=== PATIENT | female | born 2000 | race Two or more races ===

== ENCOUNTER 2020-01-15 08:40 | Emergency (ER) | payer SELFPAY ==
[~2020-01-15] VITALS: Ht 165.1 cm; Wt 78.7 kg
[2020-01-15] MEDS ORDERED: LORazepam 1MG TABLET PO ONE (09:00)
[2020-01-15] MEDS ORDERED: LORazepam 1MG TABLET ONE (09:03)
--- NOTE | 2020-01-15 09:11 | NUR ---
PT PRESENTS TO ED WITH C/O LEFT SIDED CHEST PAIN, NON-RADIATING WITH NO EXACERBATING FACTORS. DENIES ASSOCIATED SYMPTOMS AT THIS TIME, ONSET THIS AM. PT STATES AT ONSET OF PAIN, SHE FELT FAINT BUT DID NOT SYNCOPIZE. PT RATES AT 3/10, DULL. EKG TAKEN IN TRIAGE. PT ATTACHED TO ALL MONITORS. SINUS TACH RATE 90'S ON WAREHOUSE AND RECEIVING SUPERVISOR, NO ECTOPY. CALL LIGHT IN REACH. MOTHER AT BEDSIDE. AWAITING LAB AND CXR AT THIS TIME.
[2020-01-15 09:30] LABS: BASOPHILS # (AUTO) 0.04 x10^3/uL (0-0.1); BASOPHILS % (AUTO) 0 % (0-1); EOSINOPHILS # (AUTO) 0.03 x10^3/uL (0-0.4); EOSINOPHILS % (AUTO) 0 % (1-7); LYMPHOCYTES # (AUTO) 1.15 x10^3/uL (1-3.4); LYMPHOCYTES % (AUTO) 13 % (22-44); MD NO; MEAN CORPUSCULAR HGB CONC 32.5 g/dL (32.4-35.8); MEAN CORPUSCULAR VOLUME 86.2 fL (80-100); MEAN PLATELET VOLUME 7.8 fL (7.4-10.4); MONOCYTES # (AUTO) 0.75 x10^3/uL (0.2-0.8); MONOCYTES % (AUTO) 9 % (2-9); NEUTROPHILS # (AUTO) 6.71 x10^3/uL (1.8-6.8); NEUTROPHILS % (AUTO) 77 % (42-75); PLATELET COUNT 273 x10^3/uL (130-400); RED BLOOD COUNT 5.37 x10^6/uL (3.82-5.3); RED CELL DISTRIBUTION WIDTH 15.1 % (9.6-15.2)
[2020-01-15 09:55] LABS: ALBUMIN 4.4 g/dL (3.4-5.0); CALCIUM 9.1 mg/dL (8.5-10.1); CREATININE 0.81 mg/dL (0.55-1.02)
[2020-01-15 10:02] LABS: ANION GAP 9 mmol/L (5-15); CHLORIDE 110 mmol/L (98-107)
[2020-01-15 11:17] VITALS: BP 96/52
--- NOTE | 2020-01-15 11:19 | NUR ---
TASK RN: PT RESTING ON GIOVANI IN NAD. VSS. CALL LIGHT PLACED WITHIN REACH.
== END 2020-01-15 13:13 | disposition home or self-care (01) ==
LOC: ED 09:41
DX: F41.1 Generalized anxiety disorder (principal); R06.00 Dyspnea, unspecified; R07.89 Other chest pain; R00.0 Tachycardia, unspecified
CPT/HCPCS: 36415; 71046; 80048; 82040; 84703; 85025; 85379; 93005; 99285

== ENCOUNTER 2020-03-16 08:42 | Emergency (ER) | payer MEDICAID ==
[~2020-03-16] VITALS: Ht 165.1 cm; Wt 75.0 kg
[2020-03-16] MEDS ORDERED: SERT50TA PO (09:01)
--- NOTE | 2020-03-16 09:01 | NUR ---
THIS IS A 19 YO F BIB EMS FROM HOME W/ C/O SA. PT REPORTS TAKING 5 OF HER 50MG ZOLOFT AT APPROX 0800. PT PLACED ON L2K BY [employer]. 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 PER EMS PT RECEIVED 1500ML NS STEEL POURER. PT DENIES PREVIOUS SA BUT HX OF DEPRESSION/SI. PT STATES THAT SHE WOKE UP THIS MORNING AND "WAS JUST TIRED OF LIVING WITH IT". PT EASILY AROUSED AND ANSWERING QUESTIONS APPROPRIATELY. PT AMBULATED TO BEDSIDE COMMODE W/ A STEADY GAIT. UNANABLE TO PROVIDE URINE SAMPLE AT THIS TIME. BELONGINGS COLLECTED AND PLACED IN SAFETY LOCKER. PT RESTING ON [employer] W/ SIDE RAILS UPX2. CONNECTED TO ALL MONITORING. RESP EVEN AND UNLABORED, LUCIO.
--- NOTE | 2020-03-16 09:10 | NUR ---
PT AMBULATED TO THE BEDSIDE COMMODE W/ A STEADY GAIT. PROVIDED URINE SAMPLE, COLLECTED AND SENT TO LAB.
[2020-03-16 09:11] LABS: BASOPHILS # (AUTO) 0.02 x10^3/uL (0-0.1); BASOPHILS % (AUTO) 0 % (0-1); EOSINOPHILS # (AUTO) 0.02 x10^3/uL (0-0.4); EOSINOPHILS % (AUTO) 0 % (1-7); LYMPHOCYTES # (AUTO) 1.01 x10^3/uL (1-3.4); LYMPHOCYTES % (AUTO) 15 % (22-44); MD NO; MEAN CORPUSCULAR HEMOGLOBIN 27.6 pg (27.0-34.8); MEAN CORPUSCULAR HGB CONC 32.1 g/dL (32.4-35.8); MEAN PLATELET VOLUME 7.2 fL (7.4-10.4); MONOCYTES # (AUTO) 0.48 x10^3/uL (0.2-0.8); MONOCYTES % (AUTO) 7 % (2-9); NEUTROPHILS # (AUTO) 5.21 x10^3/uL (1.8-6.8); NEUTROPHILS % (AUTO) 77 % (42-75); PLATELET COUNT 302 x10^3/uL (130-400); RED BLOOD COUNT 5.29 x10^6/uL (3.82-5.3); RED CELL DISTRIBUTION WIDTH 14.3 % (9.6-15.2)
--- NOTE | 2020-03-16 09:15 | NUR ---
PT STATES THAT SHE DOES NOT WANT VISITORS RIGHT NOW BUT WE CAN UPDATE HER MOM IN THE LOBBY. MOM UPDATED ON POC.
[2020-03-16 09:20] LABS: ALBUMIN 4.1 g/dL (3.4-5.0); ANION GAP 7 mmol/L (5-15); CALCIUM 9.1 mg/dL (8.5-10.1); CHLORIDE 113 mmol/L (98-107)
[2020-03-16 09:26] LABS: ALANINE AMINOTRANSFERASE 25 U/L (12-78); ALKALINE PHOSPHATASE 48 U/L (45-117); BILIRUBIN,TOTAL 0.7 mg/dL (0.2-1.0); CREATININE 0.79 mg/dL (0.55-1.02); TOTAL PROTEIN 7.8 g/dL (6.4-8.2)
--- NOTE | 2020-03-16 09:26 | NUR ---
PT PLACED ON CO2 MONITOR FOR SAFETY.
[2020-03-16 09:28] LABS: SALICYLATE LEVEL < 1.7 mg/dL (2.8-20.0)
[2020-03-16] MEDS ORDERED: SODIUM CHLORIDE 0.9% 1,000ML IVBOLUS ONE (09:30)
[2020-03-16] MEDS ORDERED: SODIUM CHLORIDE FLUSH 10ML SYR IVF ONE (09:30)
[2020-03-16 09:34] LABS: AMPHETAMINE SCREEN, URINE Negative (Negative); BARBITURATE SCREEN, URINE Negative (Negative); BENZODIAZEPINE SCREEN, URINE Negative (Negative); CANNABINOID SCREEN, URINE Positive (Negative); COCAINE SCREEN, URINE Negative (Negative); METHADONE SCREEN, URINE Negative (Negative); OPIATE SCREEN, URINE Negative (Negative)
--- NOTE | 2020-03-16 10:22 | NUR ---
PT SLEEPING ON RNEY W/ SITTER OUTSIDE ROOM FOR SAFETY, CONNECTED TO ALL MONITORING, VSS, NADN. AWAITING RECHECK.
--- NOTE | 2020-03-16 11:42 | NUR ---
[employer] REFINERY OPERATOR AT BEDSIDE FOR EVAL.
--- NOTE | 2020-03-16 11:47 | NUR ---
PT AMBULATED W/ A STEADY GAIT TO PHONE TO CALL MOM. ACCOMPANIED BY PSA.
[2020-03-16 12:27] VITALS: BP 104/63
--- NOTE | 2020-03-16 13:11 | NUR ---
MOTHER IN ROOM, OK PER PT AND THIS RN. PT RESP EVEN AND UNLABORED, LUCIO.
--- NOTE | 2020-03-16 13:11 | NUR ---
Wendy knutson in EDM - 03/16/20 at 1333 by VAZQUEZ MOTHER IN ROOM, JB PER PT AND THIS RN. PT RESP EVEN AND UNLABORED, LUCIO.
--- NOTE | 2020-03-16 13:33 | NUR ---
PIV REMOVEDX2, PT REMOVED FROM MONITORING. PT SITTING UP ON GURNEY AWAKE AND ALERT CONVERSATING W/ MOM. RESP EVEN AND UNLABORED, NADN.
--- NOTE | 2020-03-16 13:34 | NUR ---
SITTER OUTSIDE ROOM AND GARAGE DOORS DOWN FOR SAFETY.
--- NOTE | 2020-03-16 13:39 | NUR ---
PT PROVIDED W/ SAFETY DIET TRAY.
--- NOTE | 2020-03-16 13:50 | NUR ---
TP RN NOTE: TRANSFER PACKET FAXED TO [facility], [place], [facility], AND [facility]. CONFIRMATION OF FAX RECEIPT RECEIVED.
--- NOTE | 2020-03-16 13:57 | NUR ---
TP RN NOTE: REQUEST MADE TO [facility] FOR TRANSFER. FAC ENGINEER YARIEL DENIS LOOKING INTO PT'S INSURANCE AND WILL CALL BACK IF PT ACCEPTED.
--- NOTE | 2020-03-16 14:23 | NUR ---
PT RESTING IN [facility]. SISTER IS BEDSIDE. 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
--- NOTE | 2020-03-16 15:12 | NUR ---
PT ACCEPTED TO [facility].
--- NOTE | 2020-03-16 15:16 | NUR ---
TP RN NOTE: PT ACCEPTED TO [facility]. PT TO BE TRANSPORTED ONCE NURSE TO NURSE REPORT COMPLETED.
[2020-03-16] MEDS ORDERED: ACYC-113 PO (16:41)
== END 2020-03-16 15:42 ==
LOC: ED 10:32
DX: T43.222A Poisoning by selective serotonin reuptake inhibitors, intentional self-harm, initial encounter (principal); T14.91XA Suicide attempt, initial encounter; F33.2 Major depressive disorder, recurrent severe without psychotic features; X83.8XXA Intentional self-harm by other specified means, initial encounter; Y93.89 Activity, other specified; Y92.89 Other specified places as the place of occurrence of the external cause; Y99.8 Other external cause status
CPT/HCPCS: 36415; 80053; 80307; 84703; 85025; 93005; 96360; 99285; J7030

== ENCOUNTER 2020-03-16 15:35 | Inpatient (IN) | payer MEDICAID ==
[~2020-03-16] VITALS: Ht 165.1 cm; Wt 74.8 kg
[~2020-03-16 15:35] MED LIST: SERT50TA PO
[2020-03-16] MEDS ORDERED: POLYETHYLENE GLYCOL 17 GM PACKET PO PRN (16:00)
[2020-03-16] MEDS ORDERED: ACETAMINOPHEN 325 MG TABLET PO PRN (16:00)
[2020-03-16] MEDS ORDERED: DOCUSATE 100 MG CAPSULE PO PRN (16:00)
[2020-03-16] MEDS ORDERED: ONDANSETRON ODT 4 MG PO PRN (16:00)
[2020-03-16] MEDS ORDERED: BISACODYL 10 MG SUPP PR PRN (16:00)
[2020-03-16] MEDS ORDERED: ACYC-113 PO (16:41)
[2020-03-16 16:46] VITALS: BP 116/75
[2020-03-16] MEDS ORDERED: TEMAZEPAM 15 MG CAPSULE PO PRN (17:30)
[2020-03-16 20:30] VITALS: BP 116/74
[2020-03-16] MEDS: ACYCLOVIR 200 MG CAPSULE PO SCH (20:59)
[2020-03-17 06:29] LABS: CHOL/HDL RATIO 3.1; CHOLESTEROL, TOTAL 132 mg/dL (140-239); FREE T4 (FREE THYROXINE) 1.02 ng/dL (0.76-1.46); HDL CHOL % 32 % (28-40); HDL CHOLESTEROL (DIRECT) 42 mg/dL (40-60); LDL CHOLESTEROL,CALCULATED 74 mg/dL (54-169); LDL/HDL RATIO 1.8 (0.5-3.0); TRIGLYCERIDES 78 mg/dL (50-200); VLDL CHOLESTEROL 16 mg/dL (0-25)
[2020-03-17] MEDS: ACYCLOVIR 200 MG CAPSULE PO SCH ×4 (07:40→20:51)
[2020-03-17 07:42] VITALS: BP 128/77
[2020-03-17] MEDS ORDERED: hydrOXyzine 10 MG/5 ML ORAL SOL PO PRN (13:00)
[2020-03-17] MEDS: VENLAFAXINE XR 37.5MG CAP.ER.24H PO SCH (14:06)
[2020-03-17 20:17] VITALS: BP 119/82
[2020-03-17 21:29] LABS: MICROSCOPIC NOT IND
[2020-03-18] MEDS: ACYCLOVIR 200 MG CAPSULE PO SCH ×4 (05:45→20:05)
[2020-03-18 07:28] VITALS: BP 104/69
[2020-03-18] MEDS: VENLAFAXINE XR 37.5MG CAP.ER.24H PO SCH (08:42)
[2020-03-18 20:09] VITALS: BP 129/84
[2020-03-19] MEDS: ACYCLOVIR 200 MG CAPSULE PO SCH ×4 (05:48→20:02)
[2020-03-19 07:27] VITALS: BP 114/77
[2020-03-19] MEDS: VENLAFAXINE 75 MG CAP ER PO SCH (08:09)
[2020-03-19] MEDS ORDERED: VENL75CA6 PO (15:36)
[2020-03-19] MEDS ORDERED: HYDR-826 PO (15:36)
[2020-03-19 19:58] VITALS: BP 146/92
[2020-03-20] MEDS: ACYCLOVIR 200 MG CAPSULE PO SCH ×2 (05:54→11:52)
[2020-03-20 07:26] VITALS: BP 114/70
[2020-03-20] MEDS: VENLAFAXINE 75 MG CAP ER PO SCH (08:52)
[2020-03-20] MEDS ORDERED: FLU VACC QS2020-21(6MOS UP)/PF 60MCG/0.5 ML SYR IM-VACC ONE (11:30)
== END 2020-03-20 15:17 | disposition home or self-care (01) | DRG 885 ==
LOC: 3E 16:00
PROVIDERS: ADMIT Psychiatry & Neurology Psychosomatic Medicine; ATTEND Psychiatry & Neurology Psychosomatic Medicine
DX: F33.2 Major depressive disorder, recurrent severe without psychotic features (principal); R45.851 Suicidal ideations; E87.2 Acidosis; F41.1 Generalized anxiety disorder; F12.90 Cannabis use, unspecified, uncomplicated; Z23 Encounter for immunization
CPT/HCPCS: 36415; 71045; 80061; 81003; 84439; 84443; 84702; 90686